=== PATIENT | male | born 1995 | race Caucasian/White ===

== ENCOUNTER 2024-01-10 19:18 | Emergency (ER) | payer OTHER ==
[2024-01-10 19:27] VITALS: BP 139/71; O2SAT 100
--- NOTE | 2024-01-10 19:46 | ED Physician Documentation ---
History of Present Illness - Stated complaint Stated Complaint: L FINGER LAC - Chief complaint Chief Complaint: Ext Problem - History obtained from History obtained from: Patient - History of Present Illness Timing: Today Pain level max: 3 Pain level now: 0 - Additonal information Additional information: 28-year-old male with a left fifth digit laceration to the pad of the finger with a knife while cutting cilantro tonight. Tetanus is up-to-date. Patient is right-handed. Better with pressure, nothing makes it worse. Not on blood thinners. PD PAST MEDICAL HISTORY - Past Medical History Past Medical History: No Cardiovascular: None Respiratory: None Neuro: None Endocrine/Autoimmune: None GI: None : None HEENT: None Psych: None Musculoskeletal: None Derm: None - Past Surgical History Past Surgical History: Yes General: Appendectomy - Present Medications Home Medications: Ambulatory Orders Medication Instructions Recorded Confirmed No Known Home Medications 01/10/24 01/10/24 - Allergies Allergies/Adverse Reactions: Allergies Allergy/AdvReac Type Severity Reaction Status Date / Time amoxicillin AdvReac Unknown Verified 01/10/24 19:27 Penicillins AdvReac Unknown Verified 01/10/24 19:27 - Social History Does the pt smoke?: No Smoking Status: Never smoker Does the pt drink ETOH?: No Does the pt have substance abuse?: No - Immunizations Immunizations are current?: Yes - POLST Patient has POLST: No PD ED PE NORMAL - Vitals Vital signs reviewed: Yes - General General: Alert and oriented X 3, No acute distress - Derm Derm: Warm and dry - Extremities Extremities: Other (Left fifth digit, distal phalanx, pad of digit - 1 cm linear laceration. Mild bleeding. Neurovascular intact. No tendon injury. No nail injury. Does not cross the joint line.) - Neuro Neuro: Alert and oriented X 3 Results - Vitals Vitals: Vital Signs - 24 hr 01/10/24 19:22 Temperature 37.1 C Heart Rate 75 Respiratory 16 Rate Blood Pressure 139/71 H O2 Saturation 100 Oxygen O2 Source Room air Procedures - Laceration (location) Left fifth digit Length in cm: 1 Wound type: Linear, Into subcut fat, Clean Neurovascular status: Sensory intact, Motor intact, Vascular intact Tendon involvement: Tendon intact Wound preparation: Irrigated copiously NS, Wound explored, To the base Skin layer closure: Dermabond (T ring closure system) Other: Patient tolerated well, No complications, Neurovascular intact, Dressing applied, Tetanus UTD PD Medical Decision Making - ED course Complexity details: reviewed results, re-evaluated patient, considered differential, d/w patient ED course: 28-year-old male with a laceration to the distal phalanx, pad of the left fifth digit. Neurovascular intact. Discussed closure options including sutures versus T ring closure system. Patient elects to go with a T ring closure system. The closure device was applied. Dermabond was applied over the bandage. Warnings of infection and instructions on wound care given at bedside. Also counseled on how to minimize scarring. Patient counseled regarding signs and symptoms for which I believe and urgent re-evaluation would be necessary. Patient with good understanding of and agreement to plan and is comfortable going home at this time This document was made in part using voice recognition software. While efforts a re made to proofread this document, sound alike and grammatical errors may occur. Tetanus up-to-date. Departure - Departure Disposition: 01 Home, Self Care Clinical Impression: Finger laceration Qualifiers: Encounter type: initial encounter Finger: little finger Damage to nail status: without damage Foreign body presence: without foreign body Laterality: left Qualified Code(s): S61.217A - Laceration without foreign body of left little finger without damage to nail, initial encounter Condition: Good Instructions: ED Laceration Ext Skin Glue Follow-Up: your,doctor as needed [Other] Comments: The glue will fall off on its own in about a week. Keep the area clean. You can wear the splint as needed for comfort. This will help to protect the area as well. Please return if you notice redness, swelling or drainage from the wound. Forms: PCP List
== END 2024-01-10 20:08 | disposition home or self-care (01) ==
LOC: ED 19:18
DX: S61.217A Laceration without foreign body of left little finger without damage to nail, initial encounter (principal); W26.0XXA Contact with knife, initial encounter; Y93.G1 Activity, food preparation and clean up
CPT/HCPCS: 12001; 99282